=== PATIENT | female | born 1990 | race Caucasian/White ===

== ENCOUNTER 2017-01-06 20:47 | Emergency (ER) | payer OTHER ==
[~2017-01-06] VITALS: Ht 165.1 cm; Wt 112.9 kg
[2017-01-06 20:59] VITALS: BP 130/78
== END 2017-01-06 21:44 | disposition left against medical advice (07) ==
LOC: ED 20:47
DX: Z53.21 Procedure and treatment not carried out due to patient leaving prior to being seen by health care provider (principal)

== ENCOUNTER 2017-08-17 17:19 | Emergency (ER) | payer OTHER ==
[~2017-08-17] VITALS: Ht 165.1 cm; Wt 103.0 kg
[2017-08-17 17:21] VITALS: BP 145/80; Ht 165.1 cm; Wt 103.0 kg
[2017-08-17 18:48] LABS: BASOPHIL % 0.3 % (0-2); PLATELET COUNT 364 x10^3mcL (130-400)
== END 2017-08-17 19:42 | disposition home or self-care (01) ==
LOC: ED 17:19
PROVIDERS: Emergency Medicine
DX: N64.3 Galactorrhea not associated with childbirth (principal)
CPT/HCPCS: 36415

== ENCOUNTER 2017-11-01 09:23 | Emergency (ER) | payer OTHER ==
[~2017-11-01] VITALS: Ht 167.6 cm; Wt 108.9 kg
[2017-11-01 10:15] LABS: microscopic required? NO
[2017-11-01 10:23] LABS: BASOPHIL % 0.2 % (0-2); PLATELET COUNT 330 x10^3mcL (130-400); RED CELL DISTRIBUTION WIDTH 13.2 % (11.5-14.5)
[2017-11-01 10:24] LABS: UA SPECIFIC GRAVITY >=1.030 (1.005-1.035); urine erythrocyte NEGATIVE (NEGATIVE)
[2017-11-01 10:35] LABS: CARBON DIOXIDE 30.3 mmol/L (21-32); CHLORIDE SERUM 100 mmol/L (98-107); CREATININE SERUM 0.6 mg/dL (0.6-1.0); GFR1 > 60 mL/min; GLUCOSE SERUM 141 mg/dL (74-106); SODIUM SERUM 138 mmol/L (136-145)
[2017-11-01 10:40] LABS: ALBUMIN 3.8 g/dL (3.4-5.0); ALKALINE PHOSPHATASE 77 U/L (46-116); ALT/SGPT 28 U/L (14-59); AMYLASE 51 U/L (25-115); AST/SGOT 20 U/L (15-37); BILIRUBIN TOTAL 0.65 mg/dL (0.20-1.00); LIPASE 170 IU/L (73-393); TOTAL PROTEIN, SERUM 8.2 g/dL (6.4-8.2)
[2017-11-01 13:00] VITALS: BP 116/82
== END 2017-11-01 13:00 | disposition home or self-care (01) ==
LOC: ED 09:23
PROVIDERS: Emergency Medicine
DX: K29.70 Gastritis, unspecified, without bleeding (principal); I10 Essential (primary) hypertension; E11.9 Type 2 diabetes mellitus without complications; E03.9 Hypothyroidism, unspecified; Z86.2 Personal history of diseases of the blood and blood-forming organs and certain disorders involving the immune mechanism; Z88.1 Allergy status to other antibiotic agents; Z91.048 Other nonmedicinal substance allergy status
CPT/HCPCS: 83880; J1885; J2405; J7030; Q0092

== ENCOUNTER 2017-12-30 13:39 | Emergency (ER) | payer OTHER ==
[~2017-12-30] VITALS: Ht 167.6 cm; Wt 110.7 kg
[2017-12-30 13:55] VITALS: Ht 167.6 cm; Wt 110.7 kg
[2017-12-30 15:38] VITALS: BP 110/67
[2017-12-30 16:20] LABS: BASOPHIL % 0.1 % (0-2); PLATELET COUNT 313 x10^3mcL (130-400); RED CELL DISTRIBUTION WIDTH 13.6 % (11.5-14.5)
[2017-12-30 16:24] LABS: CALCIUM 8.1 mg/dL (8.5-10.1); CARBON DIOXIDE 27.5 mmol/L (21-32); CHLORIDE SERUM 103 mmol/L (98-107); CREATININE SERUM 0.5 mg/dL (0.6-1.0); GFR1 > 60 mL/min; GLUCOSE SERUM 167 mg/dL (74-106); SODIUM SERUM 138 mmol/L (136-145)
[2017-12-30 16:28] LABS: ALBUMIN 3.3 g/dL (3.4-5.0); ALKALINE PHOSPHATASE 68 U/L (46-116); ALT/SGPT 22 U/L (14-59); AST/SGOT 13 U/L (15-37); BILIRUBIN TOTAL 0.3 mg/dL (0.20-1.00); LIPASE 152 IU/L (73-393); TOTAL PROTEIN, SERUM 7.5 g/dL (6.4-8.2)
== END 2017-12-30 17:23 | disposition home or self-care (01) ==
LOC: ED 13:39
PROVIDERS: Emergency Medicine
DX: G89.29 Other chronic pain (principal); R10.12 Left upper quadrant pain; R10.32 Left lower quadrant pain; R11.10 Vomiting, unspecified; R19.7 Diarrhea, unspecified; K59.00 Constipation, unspecified; I10 Essential (primary) hypertension; E11.9 Type 2 diabetes mellitus without complications; E03.9 Hypothyroidism, unspecified; Z86.2 Personal history of diseases of the blood and blood-forming organs and certain disorders involving the immune mechanism; F90.9 Attention-deficit hyperactivity disorder, unspecified type; F32.9 Major depressive disorder, single episode, unspecified; Z98.890 Other specified postprocedural states; Z88.1 Allergy status to other antibiotic agents; Z88.8 Allergy status to other drugs, medicaments and biological substances
CPT/HCPCS: J2270; J7030

== ENCOUNTER 2018-03-01 15:34 | Emergency (ER) | payer OTHER ==
[~2018-03-01] VITALS: Ht 167.6 cm; Wt 114.8 kg
[2018-03-01 15:37] VITALS: BP 108/72; Ht 167.6 cm; Wt 114.8 kg
== END 2018-03-01 17:56 | disposition home or self-care (01) ==
LOC: ED 15:34
DX: J06.9 Acute upper respiratory infection, unspecified (principal); I10 Essential (primary) hypertension; E11.9 Type 2 diabetes mellitus without complications; E03.9 Hypothyroidism, unspecified; F32.9 Major depressive disorder, single episode, unspecified; Z98.890 Other specified postprocedural states; Z86.2 Personal history of diseases of the blood and blood-forming organs and certain disorders involving the immune mechanism; Z88.1 Allergy status to other antibiotic agents; Z91.048 Other nonmedicinal substance allergy status

== ENCOUNTER 2018-03-26 15:46 | Inpatient (IN) | payer OTHER ==
[~2018-03-26] VITALS: Ht 165.1 cm; Wt 113.4 kg
[2018-03-26 15:52] VITALS: Ht 165.1 cm; Wt 113.4 kg
[2018-03-26 17:25] LABS: BASOPHIL % 0.3 % (0-2); PLATELET COUNT 323 x10^3mcL (130-400); RED CELL DISTRIBUTION WIDTH 13.2 % (11.5-14.5)
[2018-03-26 17:34] LABS: CALCIUM 8.5 mg/dL (8.5-10.1); CARBON DIOXIDE 28.9 mmol/L (21-32); CHLORIDE SERUM 102 mmol/L (98-107); CREATININE SERUM 0.6 mg/dL (0.6-1.0); GFR1 > 60 mL/min; GLUCOSE SERUM 190 mg/dL (74-106); SODIUM SERUM 138 mmol/L (136-145)
[2018-03-26 17:41] LABS: AMPHETAMINE QUAL UR NONE DETECTED (See below)
[2018-03-26 17:48] LABS: ALBUMIN 3.7 g/dL (3.4-5.0); ALKALINE PHOSPHATASE 79 U/L (46-116); ALT/SGPT 30 U/L (14-59); AST/SGOT 15 U/L (15-37); BILIRUBIN TOTAL 0.49 mg/dL (0.20-1.00); FREE T4 1.04 ng/dL (0.76-1.46); TOTAL PROTEIN, SERUM 8.2 g/dL (6.4-8.2)
[2018-03-26 18:00] LABS: UA SPECIFIC GRAVITY 1.025 (1.005-1.035); microscopic required? YES; urine erythrocyte NEGATIVE (NEGATIVE)
[2018-03-27] MEDS ORDERED: CYMBALTA60 M1 PO (15:45)
[2018-03-27] MEDS ORDERED: ANT25 (15:46)
[2018-03-27] MEDS ORDERED: LEVOTHYROXINE0.05 M2 (15:46)
[2018-03-27] MEDS ORDERED: TRAZODONE150 M1 PO (15:49)
[2018-03-27] MEDS ORDERED: XAN1 PO (15:49)
[2018-03-27] MEDS ORDERED: TOPAMAX50 M1 (15:49)
[2018-03-27 20:49] VITALS: BP 127/70
[2018-03-28 05:23] VITALS: BP 110/61
[2018-03-28 08:18] VITALS: BP 108/58
[2018-03-28 17:52] VITALS: BP 103/63
[2018-03-28 18:00] VITALS: BP 103/63
== END 2018-03-28 18:18 | disposition home or self-care (01) | DRG 812 ==
LOC: ED 15:46 → MU 03-27 15:53
PROVIDERS: Emergency Medicine
DX: T43.212A Poisoning by selective serotonin and norepinephrine reuptake inhibitors, intentional self-harm, initial encounter (principal); N17.0 Acute kidney failure with tubular necrosis; E03.9 Hypothyroidism, unspecified; E11.9 Type 2 diabetes mellitus without complications; I10 Essential (primary) hypertension; F32.9 Major depressive disorder, single episode, unspecified; F90.9 Attention-deficit hyperactivity disorder, unspecified type; E66.01 Morbid (severe) obesity due to excess calories; T39.312A Poisoning by propionic acid derivatives, intentional self-harm, initial encounter; T43.592A Poisoning by other antipsychotics and neuroleptics, intentional self-harm, initial encounter; Z91.5 Personal history of self-harm; Z88.1 Allergy status to other antibiotic agents; Z88.8 Allergy status to other drugs, medicaments and biological substances; Z98.84 Bariatric surgery status; Z59.0 Homelessness; Y92.89 Other specified places as the place of occurrence of the external cause; Z56.0 Unemployment, unspecified; Z68.41 Body mass index [BMI] 40.0-44.9, adult; Z79.899 Other long term (current) drug therapy
CPT/HCPCS: 82962; 84439; G0480; J2060; J7030; J8597

== ENCOUNTER 2018-06-01 21:51 | Emergency (ER) | payer OTHER ==
[~2018-06-01] VITALS: Ht 167.6 cm; Wt 120.7 kg
[~2018-06-01 21:51] MED LIST: ANT25; CYMBALTA60 M1 PO; LEVOTHYROXINE0.05 M2; TOPAMAX50 M1; TRAZODONE150 M1 PO; XAN1 PO
[2018-06-01 22:00] VITALS: Ht 167.6 cm; Wt 120.7 kg
[2018-06-01 23:40] LABS: BASOPHIL % 0.2 % (0-2); PLATELET COUNT 382 x10^3mcL (130-400); RED CELL DISTRIBUTION WIDTH 13.1 % (11.5-14.5)
[2018-06-01 23:48] LABS: CALCIUM 8.7 mg/dL (8.5-10.1); CARBON DIOXIDE 28.1 mmol/L (21-32); CHLORIDE SERUM 101 mmol/L (98-107); CREATININE SERUM 0.6 mg/dL (0.6-1.0); GFR1 > 60 mL/min; GLUCOSE SERUM 185 mg/dL (74-106); SODIUM SERUM 136 mmol/L (136-145)
[2018-06-01 23:50] LABS: ALBUMIN 3.5 g/dL (3.4-5.0); ALKALINE PHOSPHATASE 76 U/L (46-116); ALT/SGPT 23 U/L (14-59); AST/SGOT 14 U/L (15-37); BILIRUBIN TOTAL 0.3 mg/dL (0.20-1.00); LIPASE 130 IU/L (73-393); TOTAL PROTEIN, SERUM 8.1 g/dL (6.4-8.2)
[2018-06-02 00:03] LABS: UA SPECIFIC GRAVITY >=1.030 (1.005-1.035); microscopic required? YES; urine erythrocyte NEGATIVE (NEGATIVE)
[2018-06-02 01:22] VITALS: BP 106/59
== END 2018-06-02 01:22 | disposition home or self-care (01) ==
LOC: ED 21:51
PROVIDERS: Specialist
DX: O23.41 Unspecified infection of urinary tract in pregnancy, first trimester (principal); F32.9 Major depressive disorder, single episode, unspecified; E03.9 Hypothyroidism, unspecified; Z98.84 Bariatric surgery status; Z3A.00 Weeks of gestation of pregnancy not specified
CPT/HCPCS: 36415

== ENCOUNTER 2018-06-13 21:11 | Emergency (ER) | payer OTHER ==
[~2018-06-13] VITALS: Ht 165.1 cm; Wt 121.1 kg
[2018-06-13 21:28] VITALS: BP 114/64; Ht 165.1 cm; Wt 121.1 kg
[2018-06-13 21:56] LABS: BASOPHIL % 0.4 % (0-2); PLATELET COUNT 344 x10^3mcL (130-400); RED CELL DISTRIBUTION WIDTH 13.7 % (11.5-14.5)
[2018-06-13 22:02] LABS: CALCIUM 8.6 mg/dL (8.5-10.1); CARBON DIOXIDE 28.7 mmol/L (21-32); CHLORIDE SERUM 103 mmol/L (98-107); CREATININE SERUM 0.5 mg/dL (0.6-1.0); GFR1 > 60 mL/min; GLUCOSE SERUM 259 mg/dL (74-106); SODIUM SERUM 139 mmol/L (136-145)
[2018-06-13 22:07] LABS: ALKALINE PHOSPHATASE 73 U/L (46-116); ALT/SGPT 19 U/L (14-59); AST/SGOT 12 U/L (15-37); BILIRUBIN TOTAL 0.28 mg/dL (0.20-1.00); TOTAL PROTEIN, SERUM 7.7 g/dL (6.4-8.2)
[2018-06-13 22:09] LABS: ALBUMIN 3.2 g/dL (3.4-5.0)
[2018-06-13 22:20] LABS: microscopic required? NO
[2018-06-13 22:24] LABS: urine erythrocyte NEGATIVE (NEGATIVE)
== END 2018-06-14 00:14 | disposition home or self-care (01) ==
LOC: ED 21:11
PROVIDERS: Emergency Medicine
DX: O98.511 Other viral diseases complicating pregnancy, first trimester (principal); E03.9 Hypothyroidism, unspecified; F90.9 Attention-deficit hyperactivity disorder, unspecified type; F32.9 Major depressive disorder, single episode, unspecified; Z98.84 Bariatric surgery status; Z88.1 Allergy status to other antibiotic agents; Z3A.01 Less than 8 weeks gestation of pregnancy; Z88.8 Allergy status to other drugs, medicaments and biological substances
CPT/HCPCS: 36415; 87804; J7030; Q0092

== ENCOUNTER 2018-06-14 15:33 | Emergency (ER) | payer OTHER ==
[~2018-06-14] VITALS: Ht 165.1 cm; Wt 121.1 kg
[2018-06-14 15:57] VITALS: BP 130/76; Ht 165.1 cm; Wt 121.1 kg
== END 2018-06-14 17:15 | disposition left against medical advice (07) ==
LOC: ED 15:33
DX: Z53.21 Procedure and treatment not carried out due to patient leaving prior to being seen by health care provider (principal)

== ENCOUNTER 2019-09-28 14:31 | Emergency (ER) | payer OTHER ==
[~2019-09-28] VITALS: Ht 162.6 cm; Wt 116.6 kg
[2019-09-28 15:02] VITALS: Ht 162.6 cm; Wt 116.6 kg
[2019-09-28 18:25] LABS: BASOPHIL % 0.4 % (0-2); PLATELET COUNT 377 x10^3mcL (130-400); RED CELL DISTRIBUTION WIDTH 12.6 % (11.5-14.5)
[2019-09-28 20:39] VITALS: BP 125/80
== END 2019-09-28 20:39 | disposition home or self-care (01) ==
LOC: ED 14:31
PROVIDERS: Emergency Medicine
DX: O26.891 Other specified pregnancy related conditions, first trimester (principal); R07.89 Other chest pain; R19.7 Diarrhea, unspecified; E11.9 Type 2 diabetes mellitus without complications; E03.9 Hypothyroidism, unspecified; Z3A.01 Less than 8 weeks gestation of pregnancy; Z98.84 Bariatric surgery status; Z86.2 Personal history of diseases of the blood and blood-forming organs and certain disorders involving the immune mechanism; Z88.1 Allergy status to other antibiotic agents; Z88.8 Allergy status to other drugs, medicaments and biological substances
CPT/HCPCS: 36415

== ENCOUNTER 2020-02-14 21:04 | Emergency (ER) | payer OTHER ==
[~2020-02-14] VITALS: Ht 167.6 cm; Wt 105.7 kg
[2020-02-14 21:15] VITALS: Ht 167.6 cm; Wt 105.7 kg
[2020-02-14 21:53] VITALS: BP 113/53
== END 2020-02-14 21:54 | disposition home or self-care (01) ==
LOC: ED 21:04
DX: O26.892 Other specified pregnancy related conditions, second trimester (principal); E11.9 Type 2 diabetes mellitus without complications; E03.9 Hypothyroidism, unspecified; Z98.84 Bariatric surgery status; Z3A.21 21 weeks gestation of pregnancy